=== PATIENT | male | born 1990 | race Native Hawaiian/Other Pacific Islander ===

== ENCOUNTER 2023-05-26 10:30 | Outpatient (CLI) | payer OTHER ==
--- NOTE | 2023-05-26 10:59 | Sleep Patient Instructions ---
Sleep Center Visit Summary - Patient Visit Information Reason for Visit: Initial consult for evaluation of sleep disordered breathing and other sleep issues. - Patient Instructions Instructions Attached: Sleep Study Home Monitor Additional Instructions: You will be completing a sleep study, either an in-lab polysomnography (PSG) or home sleep study (HST). You will follow-up in the sleep care office after the sleep study is completed to hear the results and talk about therapy, if needed. You will be called by our office staff to schedule this appointment, but you may contact us with any questions. - Clinic Information Contact: [facility] [address] [place] [address] [email or web address] T: [phone]
[2023-05-26 11:05] VITALS: BP 145/90; O2SAT 97
--- NOTE | 2023-05-26 11:05 | SLEEP CARE CONSULTATION ---
Information from patient questionnaire entered by Ernesto Senior. I have reviewed and concur with the information entered by Ernesto Senior. This document represents the service I personally performed and the decisions made by me, Casi Peck ARNP. History of Present Illness Service Date and Time: 05/26/2023 1030 Reason for Visit: New patient Chief Complaint: reports: Unrefreshed sleep, Snoring, Excessive daytime sleepiness, Fatigue Date of Onset: COUPLE YRS Usual bedtime: 2200 Time it takes to fall asleep: 30-60MINS Snores at night: Yes Observed to quit breathing while asleep: Yes Sleeps alone due to snoring: Yes Number of times waking at night: 2-3 Reasons for waking at night: reports: Choking, Snoring, Gasping for air, Other (SOB) Toss, Turn, or Twitch while sleeping: Yes Recalls having dreams: Yes Usually gets out of bed at: 9391-8804; weekends 08-0900 Feels refreshed in the morning: No Morning headache: Yes (1 time a week and after naps; resolves in hour or two) Sleepy or fatigued during the day: Yes Ever fallen asleep while driving: No Takes day naps: Yes (2 times a week; last 30-60 mins) Dreams during day naps: No Prior sleep studies: No Additional HPI information: I had the pleasure of seeing NARAYAN TEJEDA today regarding the possibility of him having a sleep disorder. His current complaints are excessive daytime sleepiness, fatigue, snoring and unrefreshed sleep. He says he has been waking up for couple months out of breath and feeling of "where am I". He says he feels "uneasy" and not feeling right. He saw his primary provider and was referred here. He says his has told him that lately she has seen him pausing in breathing when sleeping. He has always snored but his snoring has gotten louder and he is making throat sounds. He has had to sleep separately from due to loud snoring. He has woken up feeling like he is choking when he falls asleep on the couch. He has woken himself with his own snoring. He occasionally will wake up with a headache in the morning but usually does after a nap. He does not normally wake up feeling refreshed and is tired during the day. - Parasomnia Symptoms Ever been unable to move upon waking from sleep: No Walks in sleep: No Talks in sleep: Yes Ever acted out dreams in sleep: Yes (moves his leg in sleep) Ever felt weak in the knees when startled or emotional: Yes (uneasy feeling 1-2 times a week; has not fallen to ground) Bothered by creepy, crawly, restless sensations in legs: No Problems with memory or concentration: Yes (concentration at work reduced; hard to retain memories) Subjective Initial [place] Sleepiness Scale score: 11 (05/26/23) Past Medical History Past Medical History: reports: Other (no significant medical history) Social History 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 Patient is and lives in . Have you smoked in the past 12 months: No Alcohol use: Yes Alcohol amount and frequency: 1-2DRINKS WEEKENDS Caffeine use: Yes Caffeine amount and frequency: 1 ONCE A DAY Family History Family history of sleep disordered breathing: No Allergies and Home Medications Known drug allergies: No Drug allergies reviewed: Yes Home medication list reviewed: Yes (as listed) Allergy and home medication list: Allergies No Known Drug Allergies Allergy (Verified 05/26/23 10:41) Home Medications Multivitamin See Rx Instructions .ROUTE .COMPLEX 05/26/23 [History] Review of Systems Cardiovascular: denies: high blood pressure Respiratory: reports: shortness of breath Neurological: denies: headaches Psychiatric: denies: anxiety, depression Ear/Nose/Throat: reports: wisdom teeth removed. denies: tonsillectomy Musculoskeletal: reports: neck pain Physical Exam Vital signs obtained and entered by: ERNESTO Gary MA Blood Pressure: 145/90 (RIGHT ARM) Cuff size: long Heart Rate: 82 O2 Saturation: 97 Height: 5 ft 10 in Weight: 197 lb 3.2 oz Body Mass Index: 28.3 BMI Classification: Overweight Neck circumference: 15.2 Mouth and throat: narrow oropharynx Soft palate: long Hard palate: normal Uvula: normal Uvula visualization: 25% Mallampati Class III Tongue: enlarged in size with teeth lane on lateral edges Tonsils: 2+ Neck: normal w/o lymphadenopathy or thyromegaly Heart: regular rate and rhythm Lungs: clear bilaterally Impression and Plan 1. Suspected Obstructive Sleep Apnea-Hypopnea Syndrome, as suggested by a history of loud and irregular snoring, observed cessation of breath while asleep, gasping or choking in sleep, morning headache, unrefreshed sleep, cognitive impairment, and excessive daytime sleepiness. Narrow oropharynx and obesity are common predisposing factors for obstructive sleep apnea-hypopnea syndrome. I recommend proceeding to polysomnography to confirm the diagnosis and to assess severity. If the patient has significant sleep disordered breathing, a manual CPAP titration study will also be performed to find the optimal treatment pressure. I informed the patient of what the sleep studies involve and after some discussion, obtained agreement to proceed. The pathophysiology of obstructive sleep apnea-hypopnea syndrome was discussed with the patient and health risks of cardiovascular and cerebrovascular disease if not treated. Risks of drowsy driving discussed in detail and patient advised to avoid long distance driving and to tube puller at the first sign of drowsiness. Patient agreed to plan. * Schedule polysomnography. * Avoid long distance driving or driving when feeling sleepy. * Avoid alcohol, sedative and muscle relaxant around bedtime. * Attempt to lose weight. * Review instructions provided by trained office staff on how to prepare for the sleep study. * Return for follow-up after sleep study completed. Counseling Topics: Weight loss health impact Follow up with Sleep Care in: other (for sleep study results review) Plan: PSG/HST Visit Type: In Office Time Spent with Patient (minutes): 30 Provider Statement: I spent 100% of the Face to Face Visit with the patient with greater than 50% spent counseling the patient and coordination of care.
== END 2023-05-26 10:31 | disposition home or self-care (01) ==
LOC: SC 10:30
PROVIDERS: ATTEND Nurse Practitioner Family
DX: G47.10 Hypersomnia, unspecified (principal); R51.9 Headache, unspecified; R06.83 Snoring; G47.8 Other sleep disorders; R41.89 Other symptoms and signs involving cognitive functions and awareness
CPT/HCPCS: 99203; 99212

== ENCOUNTER 2023-07-01 19:37 | Outpatient (CLI) | payer OTHER | END 2023-07-01 19:38 | disposition home or self-care (01) | LOC: SC 19:37 | PROVIDERS: ATTEND Nurse Practitioner Family | DX: G47.33 Obstructive sleep apnea (adult) (pediatric) (principal); E66.3 Overweight; Z68.28 Body mass index [BMI] 28.0-28.9, adult | CPT/HCPCS: 95810 ==

== ENCOUNTER 2023-07-20 10:48 | Outpatient (CLI) | payer OTHER ==
--- NOTE | 2023-07-20 11:10 | Sleep Patient Instructions ---
Sleep Center Visit Summary - Patient Visit Information Reason for Visit: Sleep study follow-up - Patient Instructions Instructions Attached: CPAP Additional Instructions: You are being started on CPAP therapy with pressure setting at 4-15 cmH2O. You will need to call the sleep care office to set up your follow up once you have your CPAP machine to check compliance and response to therapy at that time. You may call the office with any concerns about pressure feeling too low or too much for adjustment, if needed. You should contact DME supplier for any questions or concerns about mask or equipment. Please call office to schedule a follow up appointment in the sleep care office one month after obtaining new device. - Clinic Information Contact: [facility] [address] [place] [address] [email or web address] T: [phone]
--- NOTE | 2023-07-20 11:12 | SLEEP CARE CONSULTATION ---
Information from patient questionnaire entered by Ilene Senior. I have reviewed and concur with the information entered by Ilene Senior. This document represents the service I personally performed and the decisions made by me, Casi Peck ARNP. History of Present Illness Service Date and Time: 07/20/2023 1048 Initial [place] Sleepiness Scale score: 11 (05/26/23) Current [place] Sleepiness Scale score: 16 (07/20/23) Additional HPI information: NARAYAN TEJEDA returns for follow up and results of the recently performed polysomnography. The sleep study showed severe obstructive sleep apnea with an average AHI of 30.6 and ananda oxygen saturation of 79%. I explained the pathophysiology behind obstructive sleep apnea. We then spent quite a bit of time discussing different treatment options. For mild obstructive sleep apnea, surgery and oral appliance are alternatives to nasal CPAP therapy but in moderate or severe cases, nasal CPAP is the most effective and reliable treatment. Because apnea is primarily in supine position, then positional management therapy could be effective. Methods discussed such as positioning with pillows, using a T-shirt with tennis balls in the back or commercial products that have a pillow format on back to prevent supine sleep. I reviewed the impact of weight changes on sleep apnea and strongly recommended losing weight. After some discussion, the patient opted to go with the nasal CPAP therapy. Nasal autoCPAP set at 4-15 cmH20 will be ordered with rationale explained. A manual titration study will be ordered if unable to find optimal pressure with office adjustments. I explained how CPAP machine works and what to expect when using the machine. Using CPAP every night in order to get used to it was emphasized. Patient advised to put CPAP mask on before getting into bed so as not to fall asleep without CPAP. To assist acclimation to CPAP use, it could also be used for a short time during day while reading or watching TV. The patient was instructed to call the CPAP supplier to discuss any mechanical problem that may occur. If the mask given is uncomfortable or is difficult to keep on through the night even with adjustment, contact the CPAP supplier as many will replace with another mask style if notified before 30 days. If snoring or perceives is not getting enough air or too much air from the machine, notify this office. Patient counseled not drink alcohol less than 4 hours before bedtime as it can increase snoring and apnea. Patient was cautioned about risks of drowsy driving until sleepiness symptoms resolve. Patient denies drowsy driving. Sleep Study - Results Type of Sleep Study: Polysomnography (COMPLETED 07/01/23) Prior sleep studies: No Polysomnography/Home Sleep Study results: IMPRESSION: The quality of the study is good. The patient had normal sleep efficiency. The sleep architecture was abnormal for sleep fragmentation and reduced amount of time spent in slow wave sleep (N3). Respiratory monitoring showed severe obstructive sleep apnea-hypopnea (AHI = 30.6) associated with frequent arousals, oxyhemoglobin desaturation and moderate hypoxia (ananda oxygen saturation of 79%). The respiratory events occurred almost exclusively during supine sleep (supine AHI = 60.2; non-supine = 2.20). Snore was moderate to loud in intensity. There was no significant periodic leg movement of sleep. Cardiac rhythm was normal sinus rhythm without significant arrhythmia. No abnormal behavior (parasomnia) observed during the night. Allergies and Home Medications Known drug allergies: No Drug allergies reviewed: Yes Home medication list reviewed: Yes (no changes) Allergy and home medication list: Allergies No Known Drug Allergies Allergy (Verified 07/19/23 15:40) Review of Systems Review of systems same as previous: Yes (NO CHANGE) Physical Exam Vital signs obtained and entered by: ILENE Gary MA Blood Pressure: 138/93 (RIGHT ARM) Cuff size: long Heart Rate: 87 O2 Saturation: 97 Height: 5 ft 10 in Weight: 201 lb 9.6 oz Body Mass Index: 28.9 BMI Classification: Overweight Impression and Plan 1. Obstructive Sleep Apnea-Hypopnea Syndrome, 30.6, with lowest oxygen saturation of 79%. Obviously this is the cause of the patients symptoms of unrefreshed sleep, and excessive daytime sleepiness. As mentioned above, the patient will be started on nasal autoCPAP therapy with pressure set at 4-15 cmH2 O. A manual titration study will be completed if unable to find optimal treatment pressure with office adjustments. Compliance guidelines also reviewed. A copy of compliance guidelines will be given for reference at check out. Because the apnea is more severe supine, I instructed to avoid sleeping supine using pillow positioning until able to start CPAP use. 2. Hypoxemia, moderate, with a ananda oxygen saturation of 79% and 18 minutes spent under 90%. The baseline oxygen saturation was normal with an average oxygen saturation of 94%. 3. Overweight, unspecified. Currently patients BMI is 28.9. Obesity increases the risk of apnea, CPAP pressure requirements and overall health risks especially cardiovascular and diabetes. Thus patient is advised to lose weight. * Nasal auto CPAP therapy, pressure at 4-15 cm H2O. * Attempt to lose weight. * Avoid alcohol consumption near bedtime. * Avoid supine sleep until using CPAP. * The patient is again cautioned about driving until sleepiness completely resolves. * Return one month after CPAP obtained. I will assess response to therapy and compliance at that time. Counseling Topics: Sleeping position, Weight loss health impact Prescriptions: Auto CPAP Plan: Start CPAP and compliance follow up Visit Type: In Office Time Spent with Patient (minutes): 20 Provider Statement: I spent 100% of the Face to Face Visit with the patient with greater than 50% spent counseling the patient and coordination of care.
[2023-07-20 11:21] VITALS: BP 138/93; O2SAT 97
== END 2023-07-20 10:49 | disposition home or self-care (01) ==
LOC: SC 10:48
PROVIDERS: ATTEND Nurse Practitioner Family
DX: G47.33 Obstructive sleep apnea (adult) (pediatric) (principal); R09.02 Hypoxemia; E66.3 Overweight; Z68.28 Body mass index [BMI] 28.0-28.9, adult
CPT/HCPCS: 99212; 99213